=== PATIENT | female | born 1990 | race Caucasian/White ===

== ENCOUNTER 2017-11-11 12:33 | Emergency (ER) | payer MEDICAID, OTHER ==
[2017-11-11 12:35] VITALS: BMI 26.8
[2017-11-11 12:48] VITALS: TEMP 98.7; O2SAT 100
--- NOTE | 2017-11-11 13:55 | ED PDOC ---
Arrival/HPI - General Chief Complaint: Dental Pain Time Seen by Provider: 11/11/17 13:54 Historian: Patient - History of Present Illness Narrative History of Present Illness (Text): 11/11/17 13:54 A 27 year old female presents to the emergency department complaining of left sided tooth pain. Patient reports she was diagnosed with a tooth infection approximately 2 weeks ago and recently completed a course of penicillin. Patient had a scheduled appointment with an oral surgeon today but was unable to be seen due to her insurance. Patient presented today for mild headache, nausea and worsening pain radiating to neck. Patient denies any fever, chills, vomiting, abdominal pain, back pain, chest pain, shortness of breath or any other complaints. PMD: Dr. Bell Garza Time/Duration: Other (today) Symptom Course: Worsening Context: Home Past Medical History - Provider Review Nursing Documentation Reviewed: Yes - Past Medical History Past Medical History: No Previous - Psychiatric Hx Psychophysiologic Disorder: No Hx Depression: No Hx Substance Use: No - Past Surgical History Past Surgical History: No Previous - Surgical History Hx Cholecystectomy: Yes - Suicidal Assessment Feels Threatened In Home Enviroment: No Family/Social History - Physician Review Nursing Documentation Reviewed: Yes Family/Social History: No Known Family HX Smoking Status: Never Smoked Hx Alcohol Use: No Hx Substance Use: No Hx Substance Use Treatment: No Allergies/Home Meds Allergies/Adverse Reactions: Allergies No Known Allergies Allergy (Verified 11/11/17 12:40) Home Medications: Home Meds Medication Instructions Recorded Confirmed Ibuprofen [Motrin Tab] 800 mg PO Q6 PRN 11/11/17 11/11/17 Review of Systems - Physician Review All systems were reviewed & negative as marked: Yes - Review of Systems Constitutional: absent: Fevers, Night Sweats Respiratory: absent: SOB Cardiovascular: absent: Chest Pain Gastrointestinal: Nausea. absent: Abdominal Pain, Vomiting Musculoskeletal: Other (Left sided tooth pain radiating to neck). absent: Back Pain Neurological: Headache Physical Exam Vital Signs Reviewed: Yes Vital Signs Temp Pulse Resp BP Pulse Ox 11/11/17 14:05 89 17 115/74 100 11/11/17 12:41 98.7 F 92 H 16 112/73 100 Temperature: Afebrile Blood Pressure: Normal Pulse: Tachycardic Respiratory Rate: Normal Appearance: Positive for: Well-Appearing, Non-Toxic, Comfortable Pain Distress: None Mental Status: Positive for: Alert and Oriented X 3 - Systems Exam Head: Present: Atraumatic, Normocephalic Pupils: Present: PERRL Extroacular Muscles: Present: EOMI Conjunctiva: Present: Normal Mouth: Present: Moist Mucous Membranes, Normal Tounge, Normal Teeth Pharnyx: Present: Normal. No: ERYTHEMA, EXUDATE, TONSILS ENLARGED Neck: Present: Normal Range of Motion. No: Meningeal Signs, MIDLINE TENDERNESS , Paraspinal Tenderness Respiratory/Chest: Present: Clear to Auscultation, Good Air Exchange. No: Respiratory Distress, Accessory Muscle Use Cardiovascular: Present: Regular Rate and Rhythm, Normal S1, S2. No: Murmurs Neurological: Present: GCS=15, CN II-XII Intact, Speech Normal Skin: Present: Warm, Dry, Normal Color. No: Rashes Psychiatric: Present: Alert, Oriented x 3, Normal Insight, Normal Concentration Medical Decision Making ED Course and Treatment: 11/11/17 13:54 Impression: A 27 year old female with left sided tooth pain radiating down neck. Patient notes mild headache and nausea. Differential Diagnosis included but are not limited to: Toothache Progress Notes: 11/11/17 14:00 Patient was instructed to start clindamycin and follow up with dental clinic. Patient aware of and in agreement with plan to be discharged home. - Scribe Statement The provider has reviewed the documentation as recorded by the Meenakshiibe Carla Avilez Provider Scribe Attestation: All medical record entries made by the Scribe were at my direction and personally dictated by me. I have reviewed the chart and agree that the record accurately reflects my personal performance of the history, physical exam, medical decision making, and the department course for this patient. I have also personally directed, reviewed, and agree with the discharge instructions and disposition. Disposition/Present on Arrival - Present on Arrival Any Indicators Present on Arrival: No History of DVT/PE: No History of Uncontrolled Diabetes: No Urinary Catheter: No History of Decub. Ulcer: No History Surgical Site Infection Following: None - Disposition Have Diagnosis and Disposition been Completed?: Yes Diagnosis: Toothache Disposition: HOME/ ROUTINE Disposition Time: 14:00 Patient Plan: Discharge Condition: GOOD Discharge Instructions (ExitCare): Dental Abscess (ED) Additional Instructions: Ms Lugo, thank you for letting us take care of you today. Your provider was Dr. Trujillo. You were treated for Tootache. The emergency medical care you received today was directed at your acute symptoms. If you were prescribed any medication, please fill it and take as directed. It may take several days for your symptoms to resolve. Return to the Emergency Department if your symptoms worsen, do not improve, or if you have any other problems. Please contact your doctor or call one of the physicians/clinics you have been referred to that are listed on the Patient Visit Information form that is included in your discharge packet. Bring any paperwork you were given at discharge with you along with any medications you are taking to your follow up visit. Our treatment cannot replace ongoing medical care by a primary care provider (PCP) outside of the emergency department. Thank you for allowing the [facility] team to be part of your care today. If you had an X-Ray or CT scan: A Radiologist will review the ED reading if any change in treatment is needed we will contact you. If you had a blood, urine, or wound culture: It will take several days for the results, if any change in treatment is needed we will contact you. If you had an STI test: It will take 48 hours for the results. Please call after 1 week if you have not heard back. Prescriptions: Clindamycin [Cleocin] 450 mg PO Q8 #90 cap Referrals: Bell Garza MD [Primary Care Provider] - Follow up with primary Forms: [employer] (Chinese), WORK NOTE
[2017-11-11 14:08] VITALS: BP 115/74; PULSE 89; RESP 17
== END 2017-11-11 14:07 | disposition home or self-care (01) ==
LOC: ED 12:33
DX: K08.89 Other specified disorders of teeth and supporting structures (principal)